=== PATIENT | female | born 1985 | race Caucasian/White ===

== ENCOUNTER 2019-10-14 03:14 | Emergency (ER) | payer BC ==
[~2019-10-14] VITALS: Ht 165 cm; Wt 73.5 kg
--- OUTSIDE RECORDS SUMMARY | 2019-10-14 03:25 | XMS REPORT ---
Author Author Peg Lee Doctor Organization [facility] Address Unknown Phone Unavailable Care Team Providers Care Nurse Substance Abuse Name Role Phone Migration, Doctor Unavailable Unavailable PROBLEMS Type Condition ICD9-CM Code EOK21-SC Code Onset Dates Condition S tatus SNOMED Code Problem Papanicolaou smear of cervix with low grade squamous intraepithelial lesion (LGSIL) R87.612 Jan, 0 560267322 Problem Uterine cramping N94.89 Active 289 696140 Problem Anxiety F41.9 May, 0 0390414 2 Problem Anxiety 300.00 May, 0 8791640 2 Problem Unspecified contraceptive management V25.9 Active 846303014 Problem Papanicolaou smear of cervix with low grade squamous intraepithelial lesion (LGSIL) 795.03 Jan, 0 [id number] ALLERGIES No Information ENCOUNTERS Encounter Location Date Diagnosis [address] [address] Apr, Well woman exam with routine gynecologic al exam Z01.419 ; Uterine cramping N94.89 ; Other specified bacterial agents as the cause of diseases classified elsewhere B96.89 and Acute vaginitis N76.0 [facility] [address] [facility] [id number] [address] [place] [phone] Jan, [facility] [address] [facility] [id number] [address] [place] [phone] Jul, [facility] [address] [facility] [id number] [address] [place] [phone] Mar, Encounter for immunization Z 23 and Laceration of left thumb without foreign body without damage to nail, initial encounter S61.012A [facility] [address] [facility] [id number] [address] [place] [phone] 14 May, 2014 [facility] [address] [facility] [id number] [address] [place] [phone] May, [facility] [address] [facility] [id number] [address] [place] [phone] June, [facility] [address] [facility] [id number] [address] [place] [phone] June, [facility] [address] [facility] [id number] [address] [place] [phone] Jan, IMMUNIZATIONS No Known Immunizations SOCIAL HISTORY Never Assessed REASON FOR VISIT E[place] [place] PLAN OF CARE VITAL SIGNS MEDICATIONS Medication Instructions Dosage Frequency Start Date End Date Duration S tatus Depo-Provera Contraceptive 150 mg/mL inj ect 150 mg by intramuscular route every 3 months June, Active RESULTS No Results PROCEDURES No Known procedures INSTRUCTIONS MEDICATIONS ADMINISTERED No Known Medications
--- OUTSIDE RECORDS SUMMARY | 2019-10-14 03:25 | XMS REPORT ---
Author Author Peg Lee Doctor Organization [facility] Address Unknown Phone Unavailable Care Team Providers Care Cloud Systems Architect Name Role Phone Migration, Doctor Unavailable Unavailable PROBLEMS Type Condition ICD9-CM Code MYM20-RQ Code Onset Dates Condition S tatus SNOMED Code Problem Papanicolaou smear of cervix with low grade squamous intraepithelial lesion (LGSIL) R87.612 Jan, 0 342611052 Problem Uterine cramping N94.89 Active 289 703536 Problem Anxiety F41.9 May, 0 4074666 2 Problem Anxiety 300.00 May, 0 5899224 2 Problem Unspecified contraceptive management V25.9 Active 300477652 Problem Papanicolaou smear of cervix with low grade squamous intraepithelial lesion (LGSIL) 795.03 Jan, 0 [id number] ALLERGIES No Information ENCOUNTERS Encounter Location Date Diagnosis [address] [address] Apr, Well woman exam with routine gynecologic al exam Z01.419 ; Uterine cramping N94.89 ; Other specified bacterial agents as the cause of diseases classified elsewhere B96.89 and Acute vaginitis N76.0 [facility] [address] [facility] [id number] [address] [place] [phone] Jan, [facility] [address] [facility] [id number] [address] [place] [phone] Jul, [facility] [address] [facility] [id number] [address] [place] [phone] Mar, Encounter for immunization Z 23 and Laceration of left thumb without foreign body without damage to nail, initial encounter S61.012A [facility] [address] [facility] [id number] [address] [place] [phone] 14 May, 2014 [facility] [address] [facility] [id number] [address] [place] [phone] May, [facility] [address] [facility] [id number] [address] [place] [phone] June, [facility] [address] [facility] [id number] [address] [place] [phone] June, [facility] [address] [facility] [id number] [address] [place] [phone] Jan, IMMUNIZATIONS No Known Immunizations SOCIAL HISTORY Never Assessed REASON FOR VISIT EMR-[facility] [place] PLAN OF CARE VITAL SIGNS MEDICATIONS No Known Medications RESULTS No Results PROCEDURES No Known procedures INSTRUCTIONS MEDICATIONS ADMINISTERED No Known Medications
--- OUTSIDE RECORDS SUMMARY | 2019-10-14 03:25 | XMS REPORT ---
Author Author Peg CHISHOLM [facility] Address [address] [place] [address] Care Team Providers Care Child'S Nurse Name Role Phone CARLEY CHISHOLM Unavailable PROBLEMS Type Condition ICD9-CM Code LLI78-DU Code Onset Dates Condition S tatus SNOMED Code Problem Papanicolaou smear of cervix with low grade squamous intraepithelial lesion (LGSIL) R87.612 Jan, 0 857593784 Problem Uterine cramping N94.89 Active 289 754714 Problem Anxiety F41.9 May, 0 2279899 2 Problem Anxiety 300.00 May, 0 0581272 2 Problem Unspecified contraceptive management V25.9 Active 963595522 Problem Papanicolaou smear of cervix with low grade squamous intraepithelial lesion (LGSIL) 795.03 Jan, 0 [id number] ALLERGIES No Known Allergies ENCOUNTERS Encounter Location Date Diagnosis [facility] [address] [place] [address] Apr, Well woman exam with routine gynecologic al exam Z01.419 ; Uterine cramping N94.89 ; Other specified bacterial agents as the cause of diseases classified elsewhere B96.89 and Acute vaginitis N76.0 [facility] [place] [address] [facility] [id number] [address] [place] [phone] Jan, [facility] [place] [address] [facility] [id number] [address] [place] [phone] Jul, [facility] [address] [facility] [id number] [address] [place] [phone] Mar, Encounter for immunization Z 23 and Laceration of left thumb without foreign body without damage to nail, initial encounter S61.012A [facility] [place] [address] [facility] [id number] [address] [place] [phone] May, [facility] [place] [address] [facility] [id number] [address] [place] [phone] May, [facility] [place] [address] [facility] [id number] [address] [place] [phone] June, [facility] [place] [address] [facility] [id number] [address] [place] [phone] June, [facility] [place] [address] [facility] [id number] [address] [place] [phone] Jan, IMMUNIZATIONS No Known Immunizations SOCIAL HISTORY Never Assessed REASON FOR VISIT Annual & IUD check PLAN OF CARE Activity Details Follow Up 1 Year Reason:Annual Well Wo man VITAL SIGNS Height 66 in 2018-05-05 Weight 155 lbs 2018-05-05 Temperature 97.1 degrees Fahrenheit 2018-05-05 Heart Rate 98 bpm 2018-05-05 Oximetry 100 % 2018-05-05 BMI 25.01 kg/m2 2018-05-05 Blood pressure systolic 118 mmHg 2018-05-05 Blood pressure diastolic 74 mmHg 2018-05-05 MEDICATIONS Medication Instructions Dosage Frequency Start Date End Date Duration S tatus Flagyl 500 MG Orally 3 times a day 1 tablet 8h Apr, 7 days Active RESULTS No Results PROCEDURES Procedure Date Ordered Result Body Site N.GONORRHOEAE, DNA, AMP PROB May 05, 2018 CHYLMD TRACH, DNA, AMP PROBE May 05, 2018 SPECIMEN HANDLING May 05, 2018 INSTRUCTIONS MEDICATIONS ADMINISTERED No Known Medications
--- OUTSIDE RECORDS SUMMARY | 2019-10-14 03:26 | XMS REPORT | Continuity of Care Document ---
Author Organization Unknown Address Unknown Phone Unavailable Allergies There is no data. Medications There is no data. Problems There is no data. Procedures There is no data. Results Test Result Range SUREPATH PAP RFX HPV mRNA E6/E7 - 00:00 CLINICAL INFORMATION: NRG LMP: IUD NRG PREV. PAP: NRG PREV. BX: NRG SOURCE: Endocervix NRG STATEMENT OF ADEQUACY: NRG INTERPRETATION/RESULT: NRG MIXER ATTENDANT: NRG COMMENT: NRG PATHOLOGIST: NRG COMMENT NRG GC/CHLAMYDIA (SWAB OR URINE)-RAPID - 08/18 16:50 CHLAMYDIA TRACHOMATIS RNA, TMA NOT DETECTED NOT DETECTED NEISSERIA GONORRHOEAE RNA, TMA NOT DETECTED NOT DETECTED COMMENT NRG Urinalysis - 12/02/18 11:51 Icotest N/A Negative Urine Volume Urine Volume Sufficient (10mL) Urine-Appearance Slightly Cloudy Clear Urine-Bacteria 1+ Urine-Bilirubin Negative Negative Urine-Blood Negative Negative Urine-Color Yellow Colorless-[place]t. [place] ow Urine-Glucose Negative Negative Urine-Ketones Negative Negative Urine-Leukocytes 1+ Negative Urine-Nitrite Negative Negative Urine-Other Culture to follow Urine-pH 6.0 5-8.5 Urine-Protein Negative Negative Urine-RBC Rare/HPF Urine-Specific [place] 1.010 1.000-1 .030 Urine-WBC 10-20/HPF Urobilinogen 0.2 E.U./dL 0.2-1.0 Urine Culture - 12/02/18 11:51 PRELIM CULTURE RESULTS >100,000 Gram Positiv e Mixed Victorina Probable Skin Contaminant FINAL CULTURE RESULTS NO Pathogens Isolated No Further Workup done MEDIA PLATED Setup at 16:19 on 12/02/2018 CULTURE SOURCE void Encounters ACCT No. Visit Date/Time Discharge Status Pt. Type Provider Facility Loc./Unit Complaint [id number] 05/05/2018 15:00:00 05/05/2018 23:59:5 9 [facility] Outpatient IFTIKHAR LAMB [facility] [id number] 05/05/2018 15:00:00 Document Registration [id number] 12/02/2018 11:50:00 12/02/2018 23:59: 00 DIS Outpatient Sonja Tavares [id number] 12/02/2018 11:50:00 12/02/2018 23:59: 00 DIS Outpatient Sonja Tavares [id number] 12/02/2018 11:01:00 12/02/2018 23:59: 00 DIS Outpatient Sonja Tavares
--- OUTSIDE RECORDS SUMMARY | 2019-10-14 03:26 | XMS REPORT ---
Author Author Peg QUESADA [facility] Address [address] [place] [address] Care Team Providers Care Mandolin Repairer Name Role Phone MARINO QUESADA Unavailable PROBLEMS Type Condition ICD9-CM Code IKH77-KC Code Onset Dates Condition S tatus SNOMED Code Problem Unspecified contraceptive management V25.9 Active [id number] ALLERGIES No Known Allergies ENCOUNTERS Encounter Location Date Diagnosis [facility] [address] [facility] [id number] [address] [place] [phone] Mar, Encounter for immunization Z 23 and Laceration of left thumb without foreign body without damage to nail, initial encounter S61.012A [facility] [address] [place] [id number] [address] [place] [phone] May, [place] [id number] [place] [id number] [address] [place] [phone] May, [place] [address] [place] [id number] [address] [place] [phone] June, [facility] [address] [facility] [id number] [address] [place] [phone] June, IMMUNIZATIONS Vaccine Route Administration Date Status TDAP (BOOSTRIX) IM Intramuscular Mar 30, 2017 Administered SOCIAL HISTORY Never Assessed REASON FOR VISIT cut on finger this evening from steak knife JStrasserRN PLAN OF CARE Activity Details Follow Up prn Reason: VITAL SIGNS Height 66 in 2017-03-30 Weight 131 lbs 2017-03-30 Temperature 98.7 degrees Fahrenheit 2017-03-30 Heart Rate 100 bpm 2017-03-30 Respiratory Rate 20 2017-03-30 BMI 21.14 kg/m2 2017-03-30 Blood pressure systolic 110 mmHg 2017-03-30 Blood pressure diastolic 70 mmHg 2017-03-30 MEDICATIONS Medication Instructions Dosage Frequency Start Date End Date Duration S tatus Depo-Provera Contraceptive 150 mg/mL inj ect 150 mg by intramuscular route every 3 months June, Active RESULTS No Results PROCEDURES Procedure Date Ordered Result Body Site TDAP (BOOSTRIX) Mar 30, 2017 SINGLE IMMUNIZATION ADMIN Mar 30, 2017 INSTRUCTIONS MEDICATIONS ADMINISTERED No Known Medications
[2019-10-14] MEDS ORDERED: NS IV 1000 ML 1,000 ML IV SCH (03:49)
[2019-10-14 03:59] LABS: BILIRUBIN,URINE NEGATIVE (NEGATIVE); CLARITY,URINE CLEAR; COLOR,URINE YELLOW; GLUCOSE, URINE (UA) NEGATIVE (NEGATIVE); KETONES,URINE NEGATIVE (NEGATIVE); LEUKOCYTE ESTERASE ,URINE NEGATIVE (NEGATIVE); NITRITE,URINE NEGATIVE (NEGATIVE); PH,URINE 5.5 (5-9); PROTEIN,URINE NEGATIVE (NEGATIVE)
[2019-10-14] MEDS ORDERED: fentaNYL INJECTION 100 MCG/2 ML AMP IVP ONE (04:00)
--- NOTE | 2019-10-14 04:00 | ED Abdominal Pain ---
General Chief Complaint: Abdominal/GI Problems Stated Complaint: BACK PAIN & SEVERE ABD PAIN,ON MIRENA CONTRO Nursing Triage Note: SUPRAPUBIC PAIN AFTER INTERCOURSE. PAIN INTERMITTANTLY RADIATES TO BACK Sepsis Screen: No Definite Risk Source of Information: Patient Exam Limitations: No Limitations (ABENA MAZA MED STUDENT) History of Present Illness Date Seen by Provider: Oct 14, 2019 Time Seen by Provider: 03:26 Initial Comments This 33 year old female presents to the ED complaining of severe lower abdominal pain and back pain. She states this started suddenly about 1 hour ago, a few minutes after having sex with her fiance. She rates her pain as 7/10, and is constant and cramping in nature. She describes it as feeling like she is in labor. She states she has had the Mirena for 4 years and is worried that this is related to it moving somewhere it shouldn't be. She states that sometimes her fiance can feel it, and she can feel when he feels it. She states that she does not have a period with the Mirena, and takes urine tests often because of this. She states the last one was negative 3 weeks ago. She states she was treated for Chlamydia when she was 20, and has a history of bacterial vaginosis and chronic UTIs. She denies vaginal bleeding or urinary symptoms. She states she always has vaginal discharge, and sometimes it does have an odor. Timing/Duration: 1 Hour Severity/Quality: Severe, Cramping Location: Suprapubic Activities at Onset: Activity (sex) Modifying Factors: Improves With Other (better with hip flexion) Associated Symptoms: Back Pain (ABENA MAZA MED STUDENT) Allergies and Home Medications Allergies Coded Allergies: No Known Drug Allergies (Unverified , 10/14/19) Home Medications Hydrocodone/Acetaminophen 1 Each Tablet, 1 EACH PO Q4H PRN for PAIN-BREAKTHROUGH Prescribed by: BRUCE CHURCH on 10/14/19 0608 Patient Home Medication List Home Medication List Reviewed: Yes (BRUCE CHEATHAM MD) Review of Systems Review of Systems Constitutional: see HPI EENTM: No Symptoms Reported Respiratory: No Symptoms Reported Cardiovascular: No Symptoms Reported Gastrointestinal: See HPI Genitourinary: See HPI Musculoskeletal: see HPI Skin: no symptoms reported Psychiatric/Neurological: No Symptoms Reported Endocrine: No Symptoms Reported Hematologic/Lymphatic: No Symptoms Reported (ABENA MAZA MED STUDENT) Past Tzvtrbx-Ghqskf-Gjvdlj Hx Patient Social History Alcohol Use: Occasionally Uses Recreational Drug Use: No Smoking Status: Current Everyday Smoker Type Used: Cigarettes 2nd Hand Smoke Exposure: Yes Recent Foreign Travel: No Contact w/Someone Who Travel: No Recent Infectious Disease Expo: No Recent Hopitalizations: No (ABENA MAZA MED STUDENT) Immunizations Up To Date Tetanus Booster (TDap): Unknown (ABENA MAZA MED STUDENT) Seasonal Allergies Seasonal Allergies: No (ABENA MAZA MED STUDENT) Past Medical History Surgeries: No Respiratory: No Cardiac: No Neurological: No : No (MERTRISTIN) Genitourinary: No Gastrointestinal: No Musculoskeletal: No Endocrine: No HEENT: No Cancer: No Psychosocial: No Integumentary: No Blood Disorders: No (ABENA MAZA MED STUDENT) Physical Exam Vital Signs Vital Signs - First Documented 10/14/19 03:24 Temp 36.9 Pulse 138 Resp 20 B/P (MAP) 144/93 (110) Pulse Ox 97 O2 Delivery Room Air (BRUCE CHEATHAM MD) Vital Signs Capillary Refill : Less Than 3 Seconds (ABENA MAZA MED STUDENT) Height/Weight/BMI Height: '" Weight: lbs. oz. kg; 26.00 BMI Method: General Appearance: WD/WN, moderate distress HEENT: PERRL/EOMI Neck: normal inspection Respiratory: lungs clear, no respiratory distress, no accessory muscle use Cardiovascular: no murmur, tachycardia (upper 130s) Gastrointestinal: normal bowel sounds, soft, tenderness (suprapupic); No mass Extremities: normal range of motion, no pedal edema Back: no CVA tenderness Neurologic/Psychiatric: no motor/sensory deficits, alert, normal mood/affect, oriented x 3 Skin: normal color, warm/dry (ABENA MAZA MED STUDENT) Progress/Results/Core Measures Results/Orders Lab Results Laboratory Tests Test 10/14/19 03:26 10/14/19 03:55 10/14/19 04:06 Range/Units Urine Color YELLOW Urine Clarity CLEAR Urine pH 5.5 5-9 Urine Specific [place] <=1.005 1.016-1.022 Urine Protein NEGATIVE NEGATIVE Urine Glucose (UA) NEGATIVE NEGATIVE Urine Ketones NEGATIVE NEGATIVE Urine Nitrite NEGATIVE NEGATIVE Urine Bilirubin NEGATIVE NEGATIVE Urine Urobilinogen 0.2 < = 1.0 MG/DL Urine Leukocyte Esterase NEGATIVE NEGATIVE Urine RBC (Auto) TRACE-I NEGATIVE Urine RBC NONE /HPF Urine WBC NONE /HPF Urine Squamous Epithelial Cells NONE /HPF Urine Crystals NONE /LPF Urine Bacteria NEGATIVE /HPF Urine Casts NONE /LPF Urine Mucus NEGATIVE /LPF Urine Culture Indicated NO White Blood Count 6.8 4.3-11.0 10^3/uL Red Blood Count 4.83 4.35-5.85 10^6/uL Hemoglobin 14.1 11.5-16.0 G/DL Hematocrit 42 35-52 % Mean Corpuscular Volume 86 80-99 FL Mean Corpuscular Hemoglobin 29 25-34 PG Mean Corpuscular Hemoglobin Concent 34 32-36 G/DL Red Cell Distribution Width 13.0 10.0-14.5 % Platelet Count 238 130-400 10^3/uL Mean Platelet Volume 9.5 7.4-10.4 FL Neutrophils (%) (Auto) 67 42-75 % Lymphocytes (%) (Auto) 27 12-44 % Monocytes (%) (Auto) 5 0-12 % Eosinophils (%) (Auto) 1 0-10 % Basophils (%) (Auto) 0 0-10 % Neutrophils # (Auto) 4.6 1.8-7.8 X 10^3 Lymphocytes # (Auto) 1.8 1.0-4.0 X 10^3 Monocytes # (Auto) 0.3 0.0-1.0 X 10^3 Eosinophils # (Auto) 0.1 0.0-0.3 10^3/uL Basophils # (Auto) 0.0 0.0-0.1 10^3/uL Sodium Level 140 135-145 MMOL/L Potassium Level 3.7 3.6-5.0 MMOL/L Chloride Level 110 H 98-107 MMOL/L Carbon Dioxide Level 19 L 21-32 MMOL/L Anion Gap 11 5-14 MMOL/L Blood Urea Nitrogen 9 7-18 MG/DL Creatinine 0.79 0.60-1.30 MG/DL Estimat Glomerular Filtration Rate > 60 BUN/Creatinine Ratio 11 Glucose Level 100 70-105 MG/DL Calcium Level 8.8 8.5-10.1 MG/DL Corrected Calcium 8.5-10.1 MG/DL Total Bilirubin 0.3 0.1-1.0 MG/DL Aspartate Amino Transf (AST/SGOT) 28 5-34 U/L Alanine Aminotransferase (ALT/SGPT) 35 0-55 U/L Alkaline Phosphatase 83 40-136 U/L C-Reactive Protein High Sensitivity 0.02 0.00-0.50 MG/DL Total Protein 7.5 6.4-8.2 GM/DL Albumin 4.6 H 3.2-4.5 GM/DL Serum Test, Qualitative NEGATIVE NEGATIVE (BRUCE CHEATHAM MD) My Orders Orders - BRUCE CHEATHAM MD Fentanyl Injection (Sublimaze Injection (10/14/19 04:00) Ns Iv 1000 Ml (Sodium Chloride 0.9%) (10/14/19 03:49) Cbc With Automated Diff (10/14/19 03:49) Comprehensive Metabolic Panel (10/14/19 03:49) Hs C Reactive Protein (10/14/19 03:49) Hcg,Qualitative Serum (10/14/19 03:49) Ua Culture If Indicated (10/14/19 03:49) Ed Iv/Invasive Line Start (10/14/19 03:49) Morphine Injection (Morphine Injection (10/14/19 04:52) Ct Abdomen/Pelvis W (10/14/19 04:53) Iohexol Injection (Omnipaque 350 Mg/Ml 1 (10/14/19 05:30) Received Contrast (Hold Metformin- Contr (10/14/19 05:30) Ns (Ivpb) (Sodium Chloride 0.9% Ivpb Bag (10/14/19 05:30) Ketorolac Injection (Toradol Injection) (10/14/19 06:15) Oxycodone/Apap 5/325mg Tablet (Percocet (10/14/19 06:15) (BRUCE CHEATHAM MD) Medications Given in ED (BRUCE CHEATHAM MD) Vital Signs/I&O 10/14/19 10/14/19 03:24 06:30 Temp 36.9 36.7 Pulse 138 87 Resp 20 18 B/P (MAP) 144/93 (110) 135/77 (110) Pulse Ox 97 98 O2 Delivery Room Air Room Air (BRUCE CHEATHAM MD) Blood Pressure Mean: 110 Progress Progress Note #1: Time: 04:58 Progress Note Patient received 50 g of fentanyl for pain control. This briefly alleviated her pain but pain has now rebounded. We will further treat pain with morphine. HCG was negative. Imaging options were discussed including waiting for ultras ound at 07:[address] that'll. Risks and benefits were discussed and patient elects to proceed with CT scan now. Patient remains tachycardic even after IV fluids. Progress Note #2: Time: 06:[address] suggested ruptured ovarian cyst. Patient still has residual pain after morphine. We will give Percocet and Toradol monitor for another 30 minutes to ensure he is feeling better and vital signs are stable. She still has some mild tachycardia. Care is being turned over to Dr. Topete at this time. (BRUCE CHEATHAM MD) Diagnostic Imaging Diagonstic Imaging: CT Plain Films/CT/US/NM/MRI: abdomen, pelvis Comments CT viewed by me and [employer] report reviewed. There is a right ovarian cyst with free fluid suggestive of rupture. (BRUCE CHEATHAM MD) Departure Impression Primary Impression: Ruptured ovarian cyst Disposition: HOME, SELF-CARE Condition: Improved Departure-Patient Inst. Decision time for Depature: 06:07 (BRUCE CHEATHAM MD) Referrals: AARON COLINDRES (PCP/Family) Primary Care Physician Patient Instructions: Ovarian Cyst (DC) Add. Discharge Instructions: You may take ibuprofen up to 600 mg every 6 hours as needed. Add hydrocodone as prescribed if needed for more substantial pain control. Return to care if you have worsening symptoms such as uncontrolled pain, lightheadedness or dizziness, fever, etc. Follow-up with your primary care provider or your women's health provider as soon as possible. All discharge instructions reviewed with patient and/or family. Voiced understanding. Scripts Hydrocodone/Acetaminophen (Hydrocodone-Acetamin 5-325 mg) 1 Each Tablet 1 EACH PO Q4H PRN for PAIN-BREAKTHROUGH, #10 TAB Prov: BRUCE CHEATHAM MD 10/14/19 I have personally interviewed and examined this patient and supervised the management of her care along with Abena Maza, MS 4. I reviewed MS 4 documentation and I agree with her history, physical, assessment, and plans except were otherwise noted. This 33-year-old young lady presents to the emergency room with complaints of sudden severe lower abdominal pain immediately after intercourse. She had no significant symptoms prior to that. Exam: Gen.: Alert, oriented, mildly anxious, well-developed HEENT: Normocephalic and atraumatic, mucous membranes moist Heart: Regular, tachycardic, no murmur Lungs: Clear to auscultation bilaterally with normal effort Abdomen: Soft, significantly tender in the pelvic region, right greater than left, nondistended, normal bowel sounds Extremities: Normal to inspection Neuro psych: No focal deficits, mood and affect appropriate for his circumstances, mildly anxious Pertinent positives in the workup include CT suggested a ruptured ovarian cyst. There was no active extravasation of contrast to suggest active bleeding. Patient's pain was treated and she was given IV fluids. See discharge instructions. Patient had refractory pain after fentanyl and morphine. She was then given oxycodone and Toradol. Dr. Topete observed her for a period of time to ensure her pain was improving before discharge. (BRUCE CHEATHAM MD) ABENA MAZA,MED STUDENT Oct 14, 2019 04:00 BRUCE CHEATHAM MD Oct 14, 2019 05:00
[2019-10-14 04:08] LABS: BACTERIA,URINE NEGATIVE /HPF
[2019-10-14 04:23] LABS: BASOPHILS % (AUTO) 0 % (0-10); EOSINOPHILS # (AUTO) 0.1 10^3/uL (0.0-0.3); EOSINOPHILS % (AUTO) 1 % (0-10); HEMATOCRIT 42 % (35-52); HEMOGLOBIN 14.1 G/DL (11.5-16.0); LYMPHOCYTES # (AUTO) 1.8 X 10^3 (1.0-4.0); LYMPHOCYTES % (AUTO) 27 % (12-44); MEAN CORPUSCULAR HEMOGLOBIN 29 PG (25-34); MEAN CORPUSCULAR HGB CONC 34 G/DL (32-36); MEAN CORPUSCULAR VOLUME 86 FL (80-99); MEAN PLATELET VOLUME 9.5 FL (7.4-10.4); MONOCYTES # (AUTO) 0.3 X 10^3 (0.0-1.0); MONOCYTES % (AUTO) 5 % (0-12); NEUTROPHILS # (AUTO) 4.6 X 10^3 (1.8-7.8); NEUTROPHILS % (AUTO) 67 % (42-75); PLATELET COUNT 238 10^3/uL (130-400); WHITE BLOOD COUNT 6.8 10^3/uL (4.3-11.0)
[2019-10-14 04:36] LABS: ALBUMIN 4.6 GM/DL (3.2-4.5); CHLORIDE 110 MMOL/L (98-107); POTASSIUM 3.7 MMOL/L (3.6-5.0); SODIUM 140 MMOL/L (135-145)
[2019-10-14 04:37] LABS: CALCIUM 8.8 MG/DL (8.5-10.1)
[2019-10-14 04:38] LABS: GLUCOSE 100 MG/DL (70-105); TOTAL PROTEIN 7.5 GM/DL (6.4-8.2)
[2019-10-14 04:39] LABS: CARBON DIOXIDE 19 MMOL/L (21-32)
[2019-10-14 04:40] LABS: BILIRUBIN,TOTAL 0.3 MG/DL (0.1-1.0)
[2019-10-14 04:42] LABS: ALKALINE PHOSPHATASE 83 U/L (40-136); CREATININE SERUM 0.79 MG/DL (0.60-1.30); GFR ESTIMATED > 60
[2019-10-14 04:43] LABS: BUN/CREATININE RATIO 11
[2019-10-14 04:45] LABS: ALANINE AMINOTRANSFERASE 35 U/L (0-55)
[2019-10-14] MEDS ORDERED: morphine INJ 10 MG/ML 1ML (SYR OR VIAL) IVP STA (04:52)
[2019-10-14] MEDS ORDERED: HOLD METFORMIN - RECEIVED CONTRAST 20 ML VIAL IV SCH (05:30)
[2019-10-14] MEDS ORDERED: NS 100 ML (IVPB) BAG IV ONE (05:30)
[2019-10-14] MEDS ORDERED: IOHEXOL 350 MG/ML 100 ML (OMNIPAQUE 350) VIAL IV ONE (05:30)
[2019-10-14] MEDS ORDERED: HYDR-3812 PO (06:08)
[2019-10-14] MEDS ORDERED: oxyCODONE/APAP 5/325MG (PERCOCET 5) TABLET PO ONE (06:15)
[2019-10-14] MEDS ORDERED: KETOROLAC 30 MG/ML VIAL IVP ONE (06:15)
[2019-10-14 06:30] VITALS: BP 135/77
--- NOTE | 2019-10-14 06:36 | Diagnostic Imaging Report ---
PROCEDURE: CT abdomen and pelvis with contrast. TECHNIQUE: Multiple contiguous axial images were obtained through the abdomen and pelvis after administration of intravenous contrast. Auto Exposure Controls were utilized during the CT exam to meet ALARA standards for radiation dose reduction. INDICATION: Pelvic pain after intercourse. COMPARISON: None available. FINDINGS: The lung bases are clear. The visualized heart is normal in size. The liver, gallbladder, spleen, pancreas and adrenal glands are unremarkable. There is no biliary or pancreatic ductal dilatation. Kidneys are symmetric in size and demonstrate normal enhancement, without renal calculus, hydronephrosis, or suspicious renal mass. The ureters are normal. Stomach is collapsed, limiting evaluation. The duodenum is normal. The small bowel and colon are normal in course and caliber, without evidence of wall thickening or obstruction. The appendix is normal. The bladder is moderately distended. No focal bladder abnormality is demonstrated. An IUD is in place in the uterus. There is a low-attenuation structure measuring approximately 4.0 x 3.4 cm in the right adnexa, with central curvilinear hyperenhancement, possibly representing a ruptured corpus luteum cyst. There is no pneumoperitoneum. Trace slightly hyperdense fluid tracks along the paracolic gutters and layers in the posterior pelvis. No loculated or organized/rim-enhancing collection is demonstrated. No lymphadenopathy is appreciated. The aorta is nonaneurysmal. There is no evidence of venous thrombosis. Abdominal wall is unremarkable. No acute osseous abnormality is appreciated. IMPRESSION: There is trace high density free fluid in the paracolic gutters and pelvis, which is felt to be related to a ruptured right ovarian cyst. There is no obstruction, bowel thickening or pneumoperitoneum to suggest a bowel pathology for the fluid. Otherwise, no acute abdominal or pelvic pathology. Findings are in agreement with initial teleradiology report. Dictated by: Dictated on workstation # [id number]
== END 2019-10-14 06:30 | disposition home or self-care (01) ==
LOC: ER 03:21
DX: N83.291 Other ovarian cyst, right side (principal); F17.210 Nicotine dependence, cigarettes, uncomplicated
CPT/HCPCS: 36415; 74177; 80053; 81000; 84703; 85025; 86141